=== PATIENT | female | born 1995 | race Caucasian/White ===

== ENCOUNTER 2019-04-16 21:30 | Emergency (ER) | payer OTHER ==
[~2019-04-16] VITALS: Ht 152.4 cm; Wt 81.0 kg
[2019-04-16 21:36] VITALS: BP 169/105
[2019-04-16] MEDS ORDERED: MUPI22OI30 TOP (22:09)
[2019-04-16] MEDS ORDERED: ketorolac trometh. 30mg/ml inj. IM ONE (22:25)
[2019-04-16] MEDS ORDERED: ondansetron 4mg rapidly disintigrating tab PO ONE (22:25)
[2019-04-16] MEDS ORDERED: HYDROcodone/acetaminophen 5mg/325mg tablet PO ONE (22:25)
== END 2019-04-16 22:56 | disposition home or self-care (01) ==
LOC: ER 21:30
DX: S89.91XA Unspecified injury of right lower leg, initial encounter (principal); S99.921A Unspecified injury of right foot, initial encounter; W01.0XXA Fall on same level from slipping, tripping and stumbling without subsequent striking against object, initial encounter; Y93.89 Activity, other specified; Y92.89 Other specified places as the place of occurrence of the external cause; Y99.8 Other external cause status
CPT/HCPCS: 29505; 73564; 73630; 99283; J1885